=== PATIENT | male | born 1965 | race Native Hawaiian/Other Pacific Islander ===

== ENCOUNTER → 2019-03-07 16:03 | Outpatient (CLI) | payer OTHER, MEDICAID, SELFPAY ==
--- NOTE | 2019-03-07 | DI.RAD.S_ITS ---
PROCEDURE: XR KNEE RT 3V INDICATIONS: Pain in Knees and Hands TECHNIQUE: 3 views of the knee were acquired. COMPARISON: [facility], CR, XR KNEE LT 3V, 03/07/2019, 16:30. FINDINGS: Bones: No fractures or dislocations. No suspicious bony lesions. Moderate to severe degenerative changes of the right knee are most pronounced within the patellofemoral compartment with prominent joint space narrowing and large osteophytes. There is medial joint space narrowing with developing marginal osteophytes, as well. Spurring of the tibial spines is present. Soft tissues: There may be a small joint effusion. No suspicious soft tissue calcifications. IMPRESSION: Moderate to severe degenerative changes of the right knee are most pronounced within the patellofemoral compartment. Dictated by: Juan Manuel Moreno M.D. on 03/07/2019 at 16:02 Approved by: Juan Manuel Moreno M.D. on 03/07/2019 at 16:03
--- NOTE | 2019-03-07 | DI.RAD.S_ITS ---
PROCEDURE: XR HAND RT MIN 3V INDICATIONS: Pain in Knees and Hands TECHNIQUE: 3 views of the hand(s) acquired. COMPARISON: [facility], CR, XR HAND LT MIN 3V, 03/07/2019, 16:38. FINDINGS: Bones: No fractures or dislocations. Carpal bones are normally aligned. No suspicious bony lesions. Mild/moderate degenerative changes are present involving the joints of the thumb, most pronounced involving the metacarpal phalangeal joint. Slight irregularity at the tip the ulnar styloid process may be related to previous injury. There is mild ulnar minus variance by approximately 1-2 mm. Mild degenerative changes involving the distal interphalangeal joints of the index and 5th digits are noted. No osseous erosions are appreciated. Soft tissues: No suspicious soft tissue calcifications. IMPRESSION: Mild to moderate degenerative changes of the right hand are most pronounced involving the joints of the thumb. Dictated by: Juan Manuel Moreno M.D. on 03/07/2019 at 16:04 Approved by: Juan Manuel Moreno M.D. on 03/07/2019 at 16:05
--- NOTE | 2019-03-07 | DI.RAD.S_ITS ---
PROCEDURE: XR HAND LT MIN 3V INDICATIONS: Pain in Knees and Hands TECHNIQUE: 3 views of the hand(s) acquired. COMPARISON: None. FINDINGS: Bones: No fractures or dislocations. Carpal bones are normally aligned. No suspicious bony lesions. Mild degenerative cystic changes evident involving the tip of the radial styloid. There mild degenerative changes involving the joints of the thumb. No definite osseous erosions are appreciated. No degenerative changes are noted involving the distal interphalangeal joints of the 2nd and 5th digits. Soft tissues: No suspicious soft tissue calcifications. IMPRESSION: Mild degenerative changes of the left hand are most pronounced involving the thumb joints. Dictated by: Juan Manuel Moreno M.D. on 03/07/2019 at 16:03 Approved by: Juan Manuel Moreno M.D. on 03/07/2019 at 16:04
--- NOTE | 2019-03-07 | DI.RAD.S_ITS ---
PROCEDURE: XR KNEE LT 3V INDICATIONS: Pain in Knees and Hands TECHNIQUE: 3 views of the knee were acquired. COMPARISON: None. FINDINGS: Bones: No fractures or dislocations. No suspicious bony lesions. Moderate degenerative changes of the left knee are present, as pronounced within the patellofemoral compartment with joint space narrowing and marginal osteophytes. There also appears to BE medial joint space narrowing with subchondral sclerosis and developing marginal osteophytes. Spurring of the tibial spines is present. Soft tissues: There may be small joint effusion. No suspicious soft tissue calcifications. IMPRESSION: Moderate degenerative changes of the left knee are most pronounced within the patellofemoral compartment. Dictated by: Juan Manuel Moreno M.D. on 03/07/2019 at 16:01 Approved by: Juan Manuel Moreno M.D. on 03/07/2019 at 16:02
== END ==
PROVIDERS: Family Provider Orthopaedic Surgery; PCP Orthopaedic Surgery; Visit Provider Family Medicine
DX: M25.561 Pain in right knee (principal); M25.562 Pain in left knee; M79.641 Pain in right hand; M79.642 Pain in left hand
CPT/HCPCS: 73130; 73562

== ENCOUNTER → 2020-06-05 18:36 | Outpatient (CLI) | payer OTHER, MEDICAID, SELFPAY ==
--- NOTE | 2020-06-05 18:40 | DI.RAD.S_ITS ---
PROCEDURE: XR KNEE RT 3V INDICATIONS: Unspecified osteoarthritis, unspecified site TECHNIQUE: 3 views of the knee were acquired. COMPARISON: [facility], , XR KNEE RT 3V, 03/07/2019, 16:33. FINDINGS: Bones: No acute fractures or dislocations. Redemonstration of moderate-severe tricompartmental osteoarthrosis of the right knee most pronounced in the patellofemoral compartment. There are large patellofemoral osteophytes. Marginal osteophytes of both the medial and lateral compartments are again noted. No suspicious bony lesions. Soft tissues: No joint effusion. No suspicious soft tissue calcifications. IMPRESSION: Moderate-severe tricompartmental osteoarthrosis of the right knee which is most pronounced in the patellofemoral compartment. Overall, no significant changes identified. Dictated by: Homar Fletcher M.D. on 06/05/2020 at 22:43 Approved by: Homar Fletcher M.D. on 06/05/2020 at 22:46
--- NOTE | 2020-06-05 18:40 | DI.RAD.S_ITS ---
PROCEDURE: XR KNEE LT 3V INDICATIONS: Unspecified osteoarthritis, unspecified site TECHNIQUE: 3 views of the knee were acquired. COMPARISON: [facility], CR, XR KNEE LT 3V, 03/07/2019, 16:30. [facility], CR, XR KNEE RT 3V, 03/07/2019, 16:33. FINDINGS: Bones: No acute fractures or dislocations. No suspicious bony lesions. Moderate-severe tricompartmental degenerative changes are again noted. Medial compartment joint space narrowing with subchondral sclerosis not significantly changed. Marginal osteophyte formation of both the medial lateral compartments. Prominent/large patellofemoral osteophytes are present. Soft tissues: No substantial joint effusion. No suspicious soft tissue calcifications. IMPRESSION: Moderate-severe left knee tricompartmental osteoarthrosis most pronounced in the patellofemoral compartment. There is also moderate medial compartment joint space narrowing as before. Overall, no significant interval change. Dictated by: Homar Fletcher M.D. on 06/05/2020 at 22:46 Approved by: Homar Fletcher M.D. on 06/05/2020 at 22:50
== END ==
PROVIDERS: Family Provider Orthopaedic Surgery; PCP Orthopaedic Surgery; Referring Provider Orthopaedic Surgery; Visit Provider Orthopaedic Surgery
DX: M17.0 Bilateral primary osteoarthritis of knee (principal)
CPT/HCPCS: 73562

== ENCOUNTER 2021-11-21 13:15 | Emergency (ER) | payer OTHER, MEDICAID, SELFPAY ==
[2021-11-21 13:37] VITALS: BP 203/115; PULSE 103; RESP 22; TEMP 37.1; O2SAT 97
--- NOTE | 2021-11-21 13:47 | DI.RAD.S_ITS ---
PROCEDURE: XR HAND RT MIN 3V INDICATIONS: pain/swelling, vague description of injury TECHNIQUE: 3 views of the hand(s) acquired. COMPARISON: [facility], CR, XR HAND RT MIN 3V, 03/07/2019, 16:40. FINDINGS: Bones: No fractures or dislocations. Osteoarthritic changes are noted throughout right hand and wrist joints more prominent at 1st [facility] joint. Carpal bones are normally aligned. No suspicious bony lesions. Soft tissues: No suspicious soft tissue calcifications. IMPRESSION: No acute right hand fracture or dislocation. Right hand and wrist joint osteoarthritis. Dictated by: Ramos Thurston M.D. on 11/21/2021 at 13:52 Approved by: Ramos Thurston M.D. on 11/21/2021 at 13:53
[2021-11-21] MEDS: AMLODIPINE 5 MG TABLET PO (14:41)
[2021-11-21] MEDS: lisinopriL 20 MG TABLET PO (14:42)
--- NOTE | 2021-11-21 16:34 | PC.NURSE ---
patient called in lobby and no answer. i walked down to the surgery waiting room and no answer.
== END 2021-11-21 16:35 | disposition left against medical advice (07) ==
PROVIDERS: Emergency Provider Student in an Organized Health Care Education/Training Program; Family Provider Orthopaedic Surgery; PCP Orthopaedic Surgery
DX: S69.91XA Unspecified injury of right wrist, hand and finger(s), initial encounter (principal)
CPT/HCPCS: 73130; 99283

== ENCOUNTER → 2022-05-29 09:32 | Outpatient (CLI) | payer OTHER, MEDICAID, SELFPAY ==
--- NOTE | 2022-05-29 | DI.NM.S_ITS ---
PROCEDURE: NM BONE SCAN WHOLE BODY RADIOPHARMACEUTICAL: 20.1 mCi Tc-99m MDP IV. INDICATIONS: Abnormal serum enzyme level, unspecified TECHNIQUE: Delayed whole-body scintigrams were obtained approximately 3-4 hours after intravenous injection of radiotracer. Anterior and posterior views were acquired from vertex to feet. Additional spot images of the skull, thorax and pelvis were obtained. COMPARISON: None. FINDINGS: No lesions are identified in skull, sternum, clavicles, scapulae, ribs, bony pelvis, and visualized shafts of the long bones. There are foci of increased uptake in cervical, thoracic and lumbar spine most likely secondary to degenerative disc and facet disease; early metastasis to spine could be obscured by degenerative changes. There are foci of increased periarticular activity involving most pronounced in knees and feet, compatible with degenerative/arthritic changes. IMPRESSION: 1. No definitive scintigraphic findings to suggest metastatic disease. Dictated by: Hannah Hernandez M.D. on 05/29/2022 at 14:09 Approved by: Hannah Hernandez M.D. on 05/29/2022 at 17:26
== END ==
PROVIDERS: Family Provider Orthopaedic Surgery; PCP Orthopaedic Surgery; Referring Provider Family Medicine; Visit Provider Family Medicine
DX: R74.9 Abnormal serum enzyme level, unspecified (principal)
CPT/HCPCS: 78306; A9503

== ENCOUNTER → 2023-01-15 16:16 | Outpatient (CLI) | payer OTHER, MEDICAID, SELFPAY ==
--- NOTE | 2023-01-15 | DI.RAD.S_ITS ---
PROCEDURE: XR KNEE RT 3V INDICATIONS: PAIN TECHNIQUE: 3 views of the knee were acquired. COMPARISON: [facility], , XR KNEE RT 3V, 06/05/2020, 19:10. [facility], , XR KNEE RT 3V, 03/07/2019, 16:33. FINDINGS: Bones: No fractures or dislocations. No suspicious bony lesions. Severe tricompartmental osteoarthritic changes with severe medial compartment joint space narrowing bilaterally. Tricompartmental osteophytosis. Soft tissues: Small joint effusion. No suspicious soft tissue calcifications. IMPRESSION: Severe tricompartmental osteoarthritic changes bilaterally, most pronounced within the medial compartment. Dictated by: Sudhir Case M.D. on 01/15/2023 at 17:27 Approved by: Sudhir Case M.D. on 01/15/2023 at 17:27
--- NOTE | 2023-01-15 | DI.RAD.S_ITS ---
PROCEDURE: XR KNEE LT 3V INDICATIONS: PAIN TECHNIQUE: 3 views of the knee were acquired. COMPARISON: [facility], CR, XR KNEE RT 3V, 06/05/2020, 19:10. [facility], CR, XR KNEE RT 3V, 03/07/2019, 16:33. FINDINGS: Bones: No fractures or dislocations. No suspicious bony lesions. Tricompartmental osteoarthritic changes of the bilateral knees with severe medial joint space narrowing. Tricompartmental osteophytosis. Soft tissues: Small joint effusion. No suspicious soft tissue calcifications. IMPRESSION: Tricompartmental osteoarthritic changes of the bilateral knees with severe medial joint space narrowing. This is progressed compared to prior. Dictated by: Sudhir Case M.D. on 01/15/2023 at 17:24 Approved by: Sudhir Case M.D. on 01/15/2023 at 17:27
== END ==
PROVIDERS: PCP Family Medicine; Referring Provider Family Medicine; Visit Provider Family Medicine
DX: M25.561 Pain in right knee (principal); M25.562 Pain in left knee
CPT/HCPCS: 73562